=== PATIENT | female | born 1960 | race Caucasian/White ===

== ENCOUNTER → 2017-09-21 | Outpatient (CLI) | payer MEDICARE, MEDICAID ==
[~2017-09-21] MED LIST: ABILIFY 10MG TA10 MG PO; ABILIFY2 MG PO; BUPROPRION; L-LYSINE500 MG PO; LYSINYL500 MG PO; PATADAY 2.5 ML2.5 ML OP; PRAVACHOL 20MG20 MG PO; PREMARIN 0.60.625 M1 PO; SYNTHROID0.125 MG/T PO; TOPAMAX 100MG100 M1 PO; TOPIRAMATE; WELLBUTRIN 75MG75 MG PO
== END ==
LOC: MC.RAD 13:00
DX: Z12.31 Encounter for screening mammogram for malignant neoplasm of breast (principal); R92.2 Inconclusive mammogram

== ENCOUNTER 2017-09-22 09:30 | Outpatient (RCR) | payer MEDICARE, MEDICAID | END 2017-10-03 11:10 | disposition home or self-care (01) | LOC: WSPT 09:30 | DX: M25.552 Pain in left hip (principal); M25.562 Pain in left knee; M54.5 Low back pain; G89.29 Other chronic pain; Z90.710 Acquired absence of both cervix and uterus | CPT/HCPCS: G8978-GP; G8979-GP; G8980-GP ==

== ENCOUNTER → 2017-10-04 | Outpatient (CLI) | payer MEDICARE, MEDICAID | LOC: MC.RAD 13:00 | DX: N64.89 Other specified disorders of breast (principal) ==

== ENCOUNTER → 2018-11-28 | Outpatient (CLI) | payer MEDICARE, MEDICAID | LOC: MHCPAIN 10:20 | DX: G89.29 Other chronic pain (principal); M47.817 Spondylosis without myelopathy or radiculopathy, lumbosacral region; M53.3 Sacrococcygeal disorders, not elsewhere classified | CPT/HCPCS: G0463 ==

== ENCOUNTER → 2019-01-09 | Outpatient (CLI) | payer MEDICARE, MEDICAID | LOC: MC.RAD 13:58 | DX: Z12.31 Encounter for screening mammogram for malignant neoplasm of breast (principal) ==

== ENCOUNTER 2019-02-19 14:00 | Outpatient (RCR) | payer MEDICARE, MEDICAID | END 2019-03-28 | disposition still patient (30) | LOC: MKS.ESL.PT | DX: M47.817 Spondylosis without myelopathy or radiculopathy, lumbosacral region (principal); M53.3 Sacrococcygeal disorders, not elsewhere classified ==

== ENCOUNTER → 2019-02-25 | Outpatient (CLI) | payer MEDICARE, MEDICAID | LOC: MHCPAIN 10:23 | DX: G89.29 Other chronic pain (principal); M47.817 Spondylosis without myelopathy or radiculopathy, lumbosacral region; M53.3 Sacrococcygeal disorders, not elsewhere classified | CPT/HCPCS: G0463 ==

== ENCOUNTER 2019-03-21 12:40 | Outpatient (RCR) | payer MEDICARE, MEDICAID | END 2019-06-19 | disposition still patient (30) | LOC: MHCPAIN | DX: M47.817 Spondylosis without myelopathy or radiculopathy, lumbosacral region (principal); M54.16 Radiculopathy, lumbar region ==

== ENCOUNTER → 2019-09-06 | Day surgery (SDC) | payer MEDICARE, MEDICAID ==
[2005-03-07 15:50] VITALS: BP 111/68
--- NOTE | 2019-09-06 13:08 | NUR ---
Brought patient and sister back to room 6 ambulatory and sister states that she fed her a banana at 1230 not knowing that she was to be NPO for surgery. States that she was not informed by anyone to keep her NPO. Informed the sister that we would call Dr. Woodward and anesthesia of this.
--- NOTE | 2019-09-06 13:20 | NUR ---
Dr. Woodward informed and patient's surgery is cancelled for today and the office will call them next week to reschedule. Sister understands this. Sister did voice concern about the icy parking lot and enginerring notified by [facility] [employer]ACKER.
--- NOTE | 2019-09-06 13:25 | NUR ---
Patient and sister walked to the car and both safely in the car and dismissed to home.
== END ==
LOC: SDCO 12:55
DX: K02.9 Dental caries, unspecified (principal); Q90.9 Down syndrome, unspecified; E03.9 Hypothyroidism, unspecified; E78.00 Pure hypercholesterolemia, unspecified; H65.20 Chronic serous otitis media, unspecified ear; I73.9 Peripheral vascular disease, unspecified; F28 Other psychotic disorder not due to a substance or known physiological condition; R45.851 Suicidal ideations; J45.909 Unspecified asthma, uncomplicated; K21.9 Gastro-esophageal reflux disease without esophagitis; Z90.710 Acquired absence of both cervix and uterus; F25.9 Schizoaffective disorder, unspecified; Z82.3 Family history of stroke; Z82.49 Family history of ischemic heart disease and other diseases of the circulatory system; Z80.42 Family history of malignant neoplasm of prostate; Z80.1 Family history of malignant neoplasm of trachea, bronchus and lung; Z83.3 Family history of diabetes mellitus; Z80.3 Family history of malignant neoplasm of breast; Z91.048 Other nonmedicinal substance allergy status; Z88.5 Allergy status to narcotic agent; Z91.018 Allergy to other foods; Z88.0 Allergy status to penicillin; Z88.2 Allergy status to sulfonamides; Z88.1 Allergy status to other antibiotic agents; Z53.8 Procedure and treatment not carried out for other reasons

== ENCOUNTER 2019-09-18 13:24 | Day surgery (SDC) | payer MEDICARE, MEDICAID ==
[2005-03-07 15:50] VITALS: BP 111/68
[~2019-09-18] VITALS: Ht 147.3 cm; Wt 62.3 kg
[2019-09-18 15:05] VITALS: BP 124/54; PULSE 74; TEMP 97.6
[2019-09-18] MEDS ORDERED: SYNTHROID0.125 MG/T PO (15:18)
[2019-09-18] MEDS ORDERED: ESTRACE 1MG1 MG/TAB PO (15:19)
[2019-09-18] MEDS ORDERED: WELLBUTRIN 75MG75 MG PO (15:23)
[2019-09-18] MEDS ORDERED: ABILIFY 15MG TA15 MG PO (15:24)
[2019-09-18] MEDS ORDERED: L-LYSINE PO (15:29)
[2019-09-18] MEDS ORDERED: PRAVACHOL 20MG20 MG PO (15:30)
[2019-09-18] MEDS ORDERED: TOPAMAX 100MG100 M1 PO (15:32)
[2019-09-18] MEDS ORDERED: [UNRECOGNIZED DRUG - OTHER] DT (15:34)
[2019-09-18 17:25] VITALS: BP 111/46; PULSE 77; TEMP 97.4
--- NOTE | 2019-09-18 17:25 | NUR ---
Pt to [facility] [place] bay 2 via cart from PACU. Pt awake and alert. Denies pain or nausea. Ghost sponges in mouth bilateraly. Small amount of bloody drainage noted to them. VSS. Sister in room. Side rails up x2. Call light within reach.
[2019-09-18] MEDS ORDERED: NORCO 325 MG-51 TAB PO (17:33)
[2019-09-18] MEDS ORDERED: IBU800 M1 PO (17:33)
[2019-09-18 17:40] VITALS: BP 102/60; PULSE 83
--- NOTE | 2019-09-18 17:40 | NUR ---
Pt attempting to pull gauze out of mouth. Ghost sponges removed intact. Small amount of bloody drainage noted to them. Will continue to monitor. Pt takes small sips of water without difficulties. Call light within reach.
[2019-09-18 17:55] VITALS: BP 106/57; PULSE 77
--- NOTE | 2019-09-18 17:55 | NUR ---
Pt tolerating jello and water without difficulties. Pt denies pain or nausea. Will continue to monitor. Call light within reach.
[2019-09-18 18:10] VITALS: BP 103/63; PULSE 71
--- NOTE | 2019-09-18 18:10 | NUR ---
Pt up to restroom with stand by assistance. Pt voids large amount without difficulties. Pt back to room. Call light within reach.
--- NOTE | 2019-09-18 18:30 | NUR ---
Discharge instructions reviewed. Pt voices understanding. IV site discontinued with all parts intact. Will assist pt with dressing. Call light within reach.
--- NOTE | 2019-09-18 18:40 | NUR ---
Pt escorted to private car via wheel chair. Pt accompanied home by her sister.
[2019-09-18 19:38] VITALS: BP 111/46; PULSE 77; TEMP 97.2
== END 2019-09-18 18:40 | disposition home or self-care (01) ==
LOC: SDCO 13:24
DX: K02.9 Dental caries, unspecified (principal); Q90.9 Down syndrome, unspecified; R01.1 Cardiac murmur, unspecified; E03.9 Hypothyroidism, unspecified; E78.00 Pure hypercholesterolemia, unspecified; F25.9 Schizoaffective disorder, unspecified; Z88.1 Allergy status to other antibiotic agents; Z88.5 Allergy status to narcotic agent; Z88.0 Allergy status to penicillin; Z91.048 Other nonmedicinal substance allergy status; Z79.899 Other long term (current) drug therapy; Z88.2 Allergy status to sulfonamides; K01.1 Impacted teeth
CPT/HCPCS: J0330; J2405; J2704; J3010; J7120

== ENCOUNTER → 2021-12-30 | Outpatient (CLI) | payer MEDICARE, MEDICAID ==
[~2021-12-30] MED LIST changes: +ABILIFY 15MG TA15 MG PO; +ESTRACE 1MG1 MG/TAB PO; +IBU800 M1 PO; +L-LYSINE PO; +NORCO 325 MG-51 TAB PO; +[UNRECOGNIZED DRUG - OTHER] DT
== END ==
LOC: MC.RAD 09:57
DX: Z12.31 Encounter for screening mammogram for malignant neoplasm of breast (principal)

== ENCOUNTER 2022-09-13 10:38 | Emergency (ER) | payer MEDICARE, MEDICAID ==
[~2022-09-13] VITALS: Ht 149.9 cm; Wt 49.5 kg
[2022-09-13 10:48] VITALS: TEMP 98.3
[2022-09-13 11:01] LABS: BASO % 1.1 % (0.0-2.0); EOS % 0.3 % (0.0-4.0); GRAN # 2.1 K/mm3 (1.4-6.5); GRAN % 58.4 % (42.2-75.2); HEMATOCRIT 40.6 % (37.0-47.0); HEMOGLOBIN 13.3 g/dl (12.5-16.0); LYMPH # 0.7 K/mm3 (1.2-3.4); LYMPH % 19.8 % (20.0-51.0); MEAN CELL VOLUME 103 fl (80.0-100.0); MEAN CORPUSCULAR HEMOGLOBIN 34 pg (27-31); MEAN CORPUSCULAR HGB CONC 33 g/dl (33.0-37.0); MEAN PLATELET VOLUME 10.6 fl (7.4-10.4); MONO # 0.7 K/mm3 (0.1-0.6); MONO % 19.8 % (1.7-9.3); PLATELET COUNT 142 K/mm3 (130-400); RED BLOOD COUNT 3.94 M/mm3 (4.10-5.30); REDCELL DISTRIBUTION WIDTH-CV 14.5 % (11.5-14.5)
[2022-09-13 11:13] LABS: ALBUMIN 3.3 gm/dL (3.4-4.8); BILIRUBIN,TOTAL 0.2 mg/dL (0.2-1.2); CALCIUM 8.6 mg/dL (8.4-10.2); CREATININE, serum 0.79 mg/dL (0.57-1.11); POTASSIUM 3.9 mmol/L (3.5-4.5); TOTAL PROTEIN 6.9 gm/dL (6.2-8.1)
[2022-09-13] MEDS ORDERED: RESTASIS MULTI5.5 ML OU (11:18)
[2022-09-13 11:19] LABS: TROPONIN-I 0.024 ng/mL (0.00-0.033)
[2022-09-13] MEDS ORDERED: WELLBUTRIN 75MG75 MG PO (11:19)
[2022-09-13] MEDS ORDERED: TAMIFLU 75MG75 MG PO (12:07)
[2022-09-13 13:03] VITALS: BP 115/73; PULSE 67
== END 2022-09-13 13:08 | disposition home or self-care (01) ==
LOC: COL.ER 10:38
PROVIDERS: Emergency Medicine
DX: J10.1 Influenza due to other identified influenza virus with other respiratory manifestations (principal); I95.9 Hypotension, unspecified; D72.819 Decreased white blood cell count, unspecified; R07.89 Other chest pain; Z20.822 Contact with and (suspected) exposure to COVID-19
CPT/HCPCS: J7120

== ENCOUNTER 2023-05-31 09:30 | Outpatient (RCR) | payer MEDICARE, MEDICAID | END 2023-06-20 | disposition still patient (30) | LOC: WSST | DX: R13.11 Dysphagia, oral phase (principal) ==

== ENCOUNTER → 2023-05-31 | Outpatient (CLI) | payer MEDICARE, MEDICAID ==
[~2023-05-31] MED LIST changes: +RESTASIS MULTI5.5 ML OU; +TAMIFLU 75MG75 MG PO
== END ==
LOC: COL.RAD 09:14
DX: R13.11 Dysphagia, oral phase (principal)

== ENCOUNTER 2024-06-01 09:56 | Emergency (ER) | payer MEDICARE, MEDICAID ==
[~2024-06-01] VITALS: Ht 152.4 cm; Wt 53.2 kg
[2024-06-01 09:57] VITALS: TEMP 96.8
[2024-06-01] MEDS ORDERED: NS 1,000 ML IV ONE (10:30)
[2024-06-01] MEDS ORDERED: Ondansetron 4 MG/2 ML VIAL IV ONE (10:30)
[2024-06-01] MEDS ORDERED: Morphine 4 MG/ML VIAL IV PRN (10:30)
[2024-06-01 10:57] LABS: BASO # 0.1 K/mm3 (0.0-0.2); BASO % 1.8 % (0.0-2.0); EOS # 0.1 K/mm3 (0.0-0.7); GRAN # 2.9 K/mm3 (1.4-6.5); GRAN % 58.3 % (42.2-75.2); HEMATOCRIT 42.9 % (37.0-47.0); HEMOGLOBIN 14.4 g/dl (12.5-16.0); LYMPH # 1.3 K/mm3 (1.2-3.4); LYMPH % 25.1 % (20.0-51.0); MEAN CELL VOLUME 103 fl (80.0-100.0); MEAN CORPUSCULAR HEMOGLOBIN 34 pg (27-31); MEAN CORPUSCULAR HGB CONC 34 g/dl (33.0-37.0); MEAN PLATELET VOLUME 10.4 fl (7.4-10.4); MONO # 0.7 K/mm3 (0.1-0.6); MONO % 13.4 % (1.7-9.3); PLATELET COUNT 167 K/mm3 (130-400); RED BLOOD COUNT 4.18 M/mm3 (4.10-5.30); REDCELL DISTRIBUTION WIDTH-CV 13.2 % (11.5-14.5)
[2024-06-01 11:17] LABS: ALBUMIN 3.8 g/dL (3.4-4.8); BILIRUBIN,TOTAL 0.5 mg/dL (0.2-1.2); CALCIUM 9.8 mg/dL (8.4-10.2); CREATININE, serum 0.86 mg/dL (0.57-1.11); POTASSIUM 4.1 mEq/L (3.5-4.5); TOTAL PROTEIN 7.6 g/dl (6.2-8.1)
[2024-06-01] MEDS ORDERED: Iohexol 300 - 100 ML VIAL IV ONE (11:34)
[2024-06-01] MEDS ORDERED: NS 100 ML IV ONE (11:35)
[2024-06-01 12:01] LABS: COLLECTION METHOD CLEAN CATCH
[2024-06-01 12:07] LABS: PH 7.5 (5.0-8.5); URINE APPEARANCE CLEAR (CLEAR/HAZY); URINE BLOOD NEGATIVE (NEGATIVE); URINE COLOR YELLOW (YELLOW); URINE GLUCOSE NEGATIVE (NEGATIVE); URINE KETONE NEGATIVE (NEGATIVE); URINE NITRATE NEGATIVE (NEGATIVE); URINE PROTEIN(semi-quant) NEGATIVE (NEGATIVE); URINE UROBILINOGEN 0.2 E.U/dL (0.2-1.0)
[2024-06-01 13:08] VITALS: BP 118/82; PULSE 69
== END 2024-06-01 13:08 | disposition home or self-care (01) ==
LOC: COL.ER 09:56
PROVIDERS: Personal Emergency Response Attendant
DX: R10.13 Epigastric pain (principal); R56.9 Unspecified convulsions; R33.9 Retention of urine, unspecified
CPT/HCPCS: J2405; J7030; Q9967